=== PATIENT | female | born 1950 | race African-American/Black ===

== ENCOUNTER 2019-10-26 15:31 | Emergency (ER) | payer MEDICARE, SELFPAY ==
--- NOTE | ~2019-10-26 | CT_ITS ---
EXAMINATION: CT abdomen pelvis w con EXAM DATE: 10/26/2019 18:50 INDICATION: Low abdominal pain. Diverticulitis. TECHNIQUE: Spiral CT of the abdomen and pelvis was performed following intravenous injection of 100 m L Omnipaque 350. Axial, coronal and sagittal images were reviewed. The dose-length product (DLP) fo r this examination was 757.18 mGy-cm. The exposure was tailored according to patient size (auto mA e xposure control), and iterative reconstruction (ASIR) was used as additional dose reduction technique . There is no prior study for comparison. FINDINGS: The liver, spleen, adrenal glands and pancreas are unremarkable. Gallbladder is unremarkab le. No biliary obstruction. Portal and splenic veins are patent. Kidneys enhance symmetrically. T here is no hydronephrosis. The uterus is unremarkable. The bladder is unremarkable. There is no retroperitoneal or pelvic lymphadenopathy. The appendix is normal. The stomach and small bowel are unremarkable. There is expected amount of c olonic stool. No free intraperitoneal gas. The heart is normal in size. There are no pericardial or pleural effusions. The lung bases are unremarkable. The bones are unremarkable. IMPRESSION: 1. No acute intra-abdominal findings. Reviewed, dictated and finalized at location A. [employer]ING [employer]
[2019-10-26 16:25] VITALS: BP 145/65; PULSE 80; RESP 19; TEMP 36.8; O2SAT 100
[2019-10-26 16:42] LABS: Basophils Absolute Auto 0.1 K/mm3 (0.0-0.1); Basophils Percent Auto 0.5 % (0.2-1.2); Eosinophils Absolute Auto 0.3 K/mm3 (0-0.3); Eosinophils Percent Auto 2.7 % (0-4.4); Hematocrit 38.6 % (37.0-47.0); Hemoglobin 12.5 g/dL (12.0-15.0); Immature Granulocyte Absolute 0.02 K/mm3 (0.00-0.031); Immature Granulocyte Percent A 0.2 % (0-0.5); Lymphocytes Absolute Auto 1.53 K/mm3 (0.9-3.2); Mean Corpuscular HGB Conc 32.4 g/dl (32-36); Mean Corpuscular Hemoglobin 29.7 pg (26-34); Mean Corpuscular Volume 91.7 fl (80-100); Mean Platelet Volume 10.7 fl (7.4-10.4); Monocytes Absolute Auto 0.6 K/mm3 (0.1-0.6); Monocytes Percent Auto 6.6 % (2.6-8.5); Neutrophils Absolute Auto 7.1 K/mm3 (1.3-6.7); Platelet Count Result 228 k/mm3 (150-375); Red Blood Count 4.21 M/mm3 (4.2-5.4); Red Cell Distribution Width 13.6 % (11.5-14.5); White Blood Count 9.6 K/mm3 (4.5-10.0)
[2019-10-26 16:55] LABS: Alanine Aminotransferase 19 U/L (4-35); Alkaline Phosphatase 95 U/L (38-126); Aspartate Amino Transferase 28 U/L (14-36); Bilirubin,Total 0.3 mg/dL (0.2-1.3); Blood Urea Nitrogen 18 mg/dL (7-17); Calcium 9.4 mg/dL (8.4-10.2); Carbon Dioxide 27 mmol/L (22-30); Chloride 104 mmol/L (98-107); Estimated Glomerular Filt Rate > 60; Glucose 176 mg/dL (65-105); Lipase 54 U/L (23-300); Potassium 3.4 mmol/L (3.4-5.0); Sodium 137 mmol/L (137-145)
[2019-10-26 17:03] LABS: Add Urine Microscopic? YES; Appearance Urine Clear (Clear); Bilirubin Urine Negative (Negative); Blood Urine Negative (Negative); Color Urine Straw (Yellow); Glucose Urine UA Negative (Negative); Ketones Urine Negative (Negative); Leukocyte Esterase Ur Negative LEU/UL (Negative); Mucus Urine Rare /lpf; Nitrate Urine Negative (Negative); Protein Urine Negative (Negative); Specific Grav Ur 1.016 (1.001-1.035); Squamous Epithelial Cell Urine Many /hpf (Few); Urobilinogen Urine Negative mg/dL (<2.0); WBC Urine 0-3 /hpf
--- NOTE | 2019-10-26 17:58 | ED.ABDPAIN ---
HPI - Abdominal Pain General Chief Complaint: Abdominal Pain Stated Complaint: abd pain Time Seen by Provider: 10/26/19 17:57 Source: patient and RN notes reviewed Mode of arrival: other Limitations: no limitations History of Present Illness HPI narrative: Pt is a 69 y/o female who presents to the ED with c/o severe LLQ abdominal pain that began 3 days ago (10/23/19). Pt has a hx of GERD. Pt is able to ambulate. Pt denies dysuria, vaginal bleeding, fever, N/V/D, constipation, and chills. MD elicited complaint: abdominal pain Onset (ago): day(s) (3) Pain Consistency: constant Location: LLQ Severity: severe Associated symptoms: denies other symptoms Related Data Allergies Allergy/AdvReac Type Severity Reaction Status Date / Time metformin AdvReac Intermediate Unknown Verified 03/20/19 08:33 Review of Systems Review of Systems: All systems reviewed & are unremarkable except as noted in HPI and below Constitutional: Constitutional: Denies chills and Denies fever(s) Gastrointestinal: Gastrointestinal: Reports abdominal pain (LLQ), Denies constipation, Denies diarrhea, Denies nausea and Denies vomiting Genitourinary: Genitourinary: Denies abnormal vaginal bleeding, Denies dysuria and Denies vaginal discharge [facility] Past Medical History Medical History (Updated 10/26/19 @ 19:26 by Michael Barillas MD) Anxiety Arthritis GERD (gastroesophageal reflux disease) HTN (hypertension) Hyperlipidemia Type II diabetes mellitus Surgical History Surgical History (Updated 10/26/19 @ 18:26 by Vonda Iverson) Hx of section Social History Social History (Updated 10/26/19 @ 18:27 by Vonda Iverson) Smoking status: Current every day smoker Tobacco type: cigarettes Alcohol intake: current Alcohol use details: Pt drinks occasionally during the holidays. Gender identity (if verbalized by the patient): Female Exam Narrative: Exam Narrative: General appearance: Well-developed, well-nourished Skin: Normal color Head: Normocephalic, nontraumatic Eyes: Clear conjunctiva ENT: Oropharynx normal, ears normal, nose normal Neck: Supple, nontender Chest and respiratory: Airway patent, no respiratory distress, no accessory muscle use Heart: Regular rate/rhythm Abdomen: Soft, diffuse tenderness lower abdomen, no guarding, no rebound, no organomegaly, quiet bowel sounds Vascular: Normal peripheral pulses, normal capillary refill. Musculoskeletal: Normal range of motion, nontender back Neurologic: Alert and oriented ?3, DISPOSAL OPERATOR is normal as tested, no gross motor deficit Course Course Emergency Course: Improving Vital Signs Vital signs: Vital Signs Temperature 36.8 C 10/26/19 16:25 Pulse Rate 80 10/26/19 16:25 Respiratory Rate 19 10/26/19 16:25 Blood Pressure 145/65 H 10/26/19 16:25 Pulse Oximetry 100 10/26/19 16:25 Temperature 36.8 C 10/26/19 16:25 Pulse Rate 76 10/26/19 19:03 Respiratory Rate 14 10/26/19 19:03 Blood Pressure 171/82 H 10/26/19 19:03 Pulse Oximetry 100 10/26/19 19:03 MDM - Abdominal Pain MDM Narrative Medical decision making narrative: Lower abdominal pain, worse with certain movement, 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 Abdominal muscular strain/sprain also is a consideration. Labs, CT abdomen and pelvis with IV contrast, IV fluid, IV morphine and Zofran ordered. Further plan to follow Differential Diagnosis Differential diagnosis: Likely abdominal pain, constipation, diverticulitis, pancreatitis and small bowel obstruction Lab Data Result diagrams: 10/26/19 16:37 10/26/19 16:37 Labs: Lab Results 10/26/19 03/0
[2019-10-26] MEDS: ONDANSETRON INJ 4 MG/2 ML VIAL IV PUSH (18:31)
[2019-10-26] MEDS: SODIUM CHLORIDE 0.9% IV 1,000 ML 999 ML IV CONT (18:31)
[2019-10-26] MEDS: MORPHINE SULFATE 4 MG/ML INJ IV PUSH (18:31)
--- NOTE | 2019-10-26 18:36 | PC.NURSE ---
pt to CT scan via stretcher
[2019-10-26 19:03] VITALS: BP 171/82; PULSE 76; RESP 14; O2SAT 100
[2019-10-26 19:43] VITALS: BP 167/98; PULSE 75; RESP 16; TEMP 36.8; O2SAT 99
== END 2019-10-26 19:46 | disposition home or self-care (01) ==
PROVIDERS: Emergency Medicine; Emergency Provider Emergency Medicine; PCP Family Medicine
DX: R10.32 Left lower quadrant pain (principal); M19.90 Unspecified osteoarthritis, unspecified site; K21.9 Gastro-esophageal reflux disease without esophagitis; I10 Essential (primary) hypertension; E78.5 Hyperlipidemia, unspecified; E11.9 Type 2 diabetes mellitus without complications; F17.210 Nicotine dependence, cigarettes, uncomplicated
CPT/HCPCS: 36415; 74177; 80053; 81001; 83690; 85025; 96361; 96374; 96375; 99284; J2270; J2405; J7030; Q9967

== ENCOUNTER 2020-02-06 00:32 | Outpatient (CLI) | payer MEDICARE, SELFPAY ==
[2020-02-06 18:12] LABS: SARS-CoV-2 RNA PCR Negative
== END 2020-02-06 00:33 | disposition home or self-care (01) ==
LOC: ANHCOVIDDT 00:32
PROVIDERS: PCP Family Medicine; Visit Provider Internal Medicine Gastroenterology
DX: Z20.828 Contact with and (suspected) exposure to other viral communicable diseases (principal); Z01.812 Encounter for preprocedural laboratory examination
CPT/HCPCS: 87635; C9803; U0003

== ENCOUNTER 2020-02-08 02:19 | Day surgery (SDC) | payer MEDICARE, SELFPAY ==
[2020-02-05 14:08] VITALS: BMI 30.2
[2020-02-08 08:16] VITALS: BP 120/95; PULSE 50; RESP 18; TEMP 36.4; O2SAT 98
--- NOTE | 2020-02-08 08:35 | P.HP_ITS ---
History of Present Illness History of Present Illness Consent: Risks, benefits, and alternatives have been discussed and questions answered. Patient agrees to proceed with procedure. Chief complaint: HX of Polyps Narrative: Miriam Sherman is a 69 year old AA female referred for screening colonoscopy. Patient states he had a colonoscopy 7 years ago at [facility] which time several polyps were removed. There is no family history of colon polyps or colon cancer that she is aware of. Patient denies any change in bowel pattern. [facility] Past Medical History Medical History (Updated 10/27/19 @ 00:00 by Donna Collins) Anxiety Arthritis GERD (gastroesophageal reflux disease) HTN (hypertension) Hyperlipidemia Type II diabetes mellitus Surgical History Surgical History (Updated 10/26/19 @ 18:26 by Vonda Iverson) Hx of section Social History Social History (Updated 10/26/19 @ 18:27 by Vonda Iverson) Smoking status: Current every day smoker Tobacco type: cigarettes Alcohol intake: current Gender identity (if verbalized by the patient): Female Meds Home Medications and Allergies Home Medications Medication Instructions Recorded Confirmed Type tramadol 50 mg PO Q4HWA PRN #20 tablet 10/26/19 02/05/20 Rx amlodipine 10 mg PO DAILY 02/05/20 02/05/20 History cetirizine 10 mg PO DAILY 02/05/20 02/05/20 History empagliflozin [Jardiance] 25 mg PO DAILY 02/05/20 02/05/20 History famotidine 20 mg PO DAILY 02/05/20 02/05/20 History insulin glargine [Lantus Solostar 34 unit SUBCUT DAILY 02/05/20 02/05/20 History U-100 Insulin] losartan-hydrochlorothiazide 100 tablet PO DAILY 02/05/20 02/05/20 History naproxen 500 mg PO DAILY 02/05/20 02/05/20 History sertraline 100 mg PO DAILY 02/05/20 02/05/20 History diclofenac potassium 50 mg PO PRN PRN 02/08/20 02/08/20 History Allergies Allergy/AdvReac Type Severity Reaction Status Date / Time metformin AdvReac Intermediate Unknown Verified 03/20/19 08:33 Vital Signs Vital Signs - 24 hr 02/08/20 08:16 Temperature 36.4 C Pulse Rate 50 L Respiratory Rate 18 Blood Pressure 120/95 H Pulse Oximetry 98 Exam Const: Orientation/consciousness: patient oriented x3 Resp: Auscultation: clear to auscultation bilaterally Cardio: Rate: regular rate Rhythm: regular rhythm Heart sounds: no murmurs GI: GI Palp: Yes Soft to palpation, No Tenderness to palpation present (GI), Yes No hepatosplenomegaly present and No Palpable mass present Auscultation: normal bowel sounds Neuro: General: patient oriented x3 and no focal motor deficits Extrem: General: no pedal edema Assessment and Plan Additional Plan Screening colonoscopy secondary history of colonic polyps
[2020-02-08] MEDS: LACTATED RINGERS 1,000 ML 150 ML IV CONT (08:44)
[2020-02-08 08:48] LABS: Glucose Point of Care 62 (65-105)
--- NOTE | 2020-02-08 08:51 | SUR.PREOP ---
DR MAX AWARE OF BS OF 63
--- NOTE | 2020-02-08 08:54 | WPDANESEPPF ---
Anes - Initial Pre Proc Eval Procedure: Operation Date: 02/08/20 09:00 Proposed Procedures p Screening Colonoscopy - Jose De Jesus Schofield MD Date/Time: 02/08/20 08:54 Surgeon: Jose De Jesus Schofield MD Pre Op Diagnosis: HX of Polyps Patient Data Age: 69 Gender: F Height: 5 ft 6 in Weight: 85.1 kg Last Vital Signs Temp 97.6 F 02/08/20 08:16 Pulse 50 L 02/08/20 08:16 Resp 18 02/08/20 08:16 BP 120/95 H 02/08/20 08:16 Pulse Ox 98 02/08/20 08:16 Allergies Allergy/AdvReac Type Severity Reaction Status Date / Time metformin AdvReac Intermediate Unknown Verified 02/08/20 08:48 Home Medications Medication Instructions Recorded Confirmed Type tramadol 50 mg PO Q4HWA PRN #20 tablet 10/26/19 02/08/20 Rx amlodipine 10 mg PO DAILY 02/05/20 02/08/20 History cetirizine 10 mg PO DAILY 02/05/20 02/08/20 History empagliflozin [Jardiance] 25 mg PO DAILY 02/05/20 02/08/20 History famotidine 20 mg PO DAILY 02/05/20 02/08/20 History insulin glargine [Lantus Solostar 34 unit SUBCUT DAILY 02/05/20 02/08/20 History U-100 Insulin] losartan-hydrochlorothiazide 100 tablet PO DAILY 02/05/20 02/08/20 History naproxen 500 mg PO DAILY 02/05/20 02/08/20 History sertraline 100 mg PO DAILY 02/05/20 02/08/20 History diclofenac potassium 50 mg PO PRN PRN 02/08/20 02/08/20 History Laboratory Tests 02/08/20 08:43 POC Capillary Glucose 62 mg/dl L mg/dl (65-105) Patient hx anesthesia problems: none Family hx anesthesia problems: none [facility] Past Medical History Medical History (Updated 10/27/19 @ 00:00 by Donna Collins) Anxiety Arthritis GERD (gastroesophageal reflux disease) HTN (hypertension) Hyperlipidemia Type II diabetes mellitus Surgical History Surgical History (Updated 10/26/19 @ 18:26 by Vonda Iverson) Hx of section Social History Social History (Updated 10/26/19 @ 18:27 by Vonda Iverson) Smoking status: Current every day smoker Tobacco type: cigarettes Alcohol intake: current Gender identity (if verbalized by the patient): Female Anes - Eval Final PreProcedure Day of Procedure 02/08/20 08:54 Patient weight: overweight Heart: regular rate and rhythm Lungs: clear to auscultation Airway: Mallampati scale class II Neurological: alert and oriented Last oral intake: >/= 8 hours ASA classification: III Emergent: no Anesthetic plan: proceed Anesthesia type and monitoring: general GIVS and standard monitoring Informed Consent: The patient's anesthetic plan and its attendant risks and benefits were discussed with the patient/family/POA. Questions were solicited and answers provided to the satisfaction of the patient/family/POA.
[2020-02-08] MEDS: DEXTROSE 50% 25 GM/50 ML SYRINGE IV PUSH (09:00)
[2020-02-08 09:30] VITALS: BP 129/66; PULSE 65; RESP 17; O2SAT 97
[2020-02-08 09:40] VITALS: BP 145/74; PULSE 62; RESP 19; O2SAT 100
[2020-02-08 09:47] LABS: Glucose Point of Care 166 (65-105)
[2020-02-08 09:50] VITALS: BP 137/69; PULSE 58; RESP 16; O2SAT 100
== END 2020-02-08 10:05 | disposition home or self-care (01) ==
PROVIDERS: PCP Family Medicine; Visit Provider Internal Medicine Gastroenterology
PROC: 0DJD8ZZ Inspection of Lower Intestinal Tract, Via Natural or Artificial Opening Endoscopic (ICD-10-PCS; CPT 45378; principal; 2020-02-08 09:00)
DX: Z12.11 Encounter for screening for malignant neoplasm of colon (principal); K64.8 Other hemorrhoids; Z86.010 Personal history of colon polyps; I10 Essential (primary) hypertension; E78.5 Hyperlipidemia, unspecified; E11.9 Type 2 diabetes mellitus without complications; K21.9 Gastro-esophageal reflux disease without esophagitis; F41.9 Anxiety disorder, unspecified; Z79.4 Long term (current) use of insulin; F17.210 Nicotine dependence, cigarettes, uncomplicated
CPT/HCPCS: G0105; J2704; J7120

== ENCOUNTER 2020-03-08 09:01 | Outpatient (CLI) | payer MEDICARE, SELFPAY ==
--- NOTE | ~2020-03-08 | US_ITS ---
EXAMINATION: US soft tissue LE RT DATE: 03/08/2020 09:47 INDICATION: Right knee pain TECHNIQUE: Multiple grayscale and Doppler ultrasound images of the posterior and lateral aspects of t he right knee were obtained. COMPARISON: None FINDINGS: There appears to be small right knee joint effusion in the lateral gutter of the suprapatellar pouch. There is an additional small anechoic fluid collection likely at the posterolateral aspect of the kn ee which could represent either a ganglion cyst or fluid within the popliteal recess. Popliteal arter y and vein appear unremarkable with no aneurysm. No lymphadenopathy or other abnormal mass at the pop liteal fossa. IMPRESSION: 1. Small right knee joint effusion with additional fluid either within a ganglion cyst or at the popl iteal recess at the posterior lateral aspect of the knee. Reviewed, dictated and finalized at location A. IMPRESSION: 1. Small right knee joint effusion with additional fluid either within a gangli on cyst or at the popliteal recess at the posterior lateral aspect of the knee.
== END 2020-03-08 09:02 | disposition home or self-care (01) ==
PROVIDERS: PCP Family Medicine; Visit Provider Family Medicine
DX: M25.561 Pain in right knee (principal); M25.461 Effusion, right knee
CPT/HCPCS: 76882

== ENCOUNTER 2020-12-24 12:25 | Outpatient (CLI) | payer MEDICARE, SELFPAY ==
[2020-12-24 13:53] LABS: Total Triiodothyronine (T3) 1.28 NG/ML (0.97-1.69)
[2020-12-27 14:37] LABS: Thyroid Stimulating Immunoglob <89 % baseline (<140)
[2020-12-28 07:51] LABS: Thyrotropin Receptor Antibody 11.15 IU/L (<=2.00)
[2020-12-29 07:15] LABS: Thyroglobulin 114.6 ng/mL (2.8-40.9); Thyroglobulin Antibodies <1 IU/mL (<=1); Thyroid Peroxidase Antibodies 3 IU/mL (<9)
[2021-01-03 08:28] LABS: Triiodothyronine T3 Free 3.3 pg/mL (2.3-4.2)
== END 2020-12-24 12:26 | disposition home or self-care (01) ==
PROVIDERS: PCP Family Medicine
DX: E03.9 Hypothyroidism, unspecified (principal)
CPT/HCPCS: 36415; 83519; 84432; 84445; 84480; 84481; 86376; 86800

== ENCOUNTER 2021-12-23 14:30 | Outpatient (RCR) | payer MEDICARE, MEDICAID, SELFPAY ==
--- NOTE | 2021-10-03 16:09 | PTOPEVAL ---
Thank you for referring Miriam Sherman to [facility] The patient is scheduled to be seen for therapy? 1-2 x/week for 8 weeks. Please review, sign, date and return this plan of care LAUREL. I agree with and certify that the following plan of care is medically necessary. Referring Physician Date Attending Provider: Marcelino Cardenas, MD Diagnosis neck pain, ligament sprain Onset years Cause no injury Additional Evaluation Detail Pt 15 min late for initial visit. Subjective Information Reports increased neck pain ~2 Query Text:As Reported By Patient/ months ago. Denies a fall or Family injury to contribute to the pain. She is able to perform increased activities when she takes her pain medication. She reports her neck muscle and neck region feel swollen. She reports limitations with sleeping, lifting, ADL's, driving and household task. She has difficulty sleeping due to pain. She reports limitations with turning her neck with activities. She uses heat, ice and medication for her pain. She has an exercises bike and TM at home, but has not used either for ~2 months. Diagnostic Tests X-Rays For This Problem Yes: 2019, normal Pain Assessment Bilateral Neck Reported Pain Level 0 Pain Description Aching,Stabbing,Tightness Pain Frequency Acute,Chronic Lowest Pain Intensity 0 Greatest Pain Intensity 10 Pain Aggravating Factors ADL's,Exercise/Activity, Lifting,Prolonged Position Pain Behaviors Anxious Cervical and Lumbar ROM Cervical ROM Cervical Flexion (0-60) 50:Active in Degrees Cervical Extension (0-70) 50:Active in Degrees Cervical Lateral Flexion Right (0-50) 20:Active in Degrees Cervical Lateral Flexion Left (0-50) 25:Active in Degrees Cervical Rotation Right (0-90) 35:Active in Degrees Cervical Rotation Left (0-90) 20:Active in Degrees Cervical ROM Comments pain and tightness with movement Upper Extremity Range of Motion General Upper Extremity Range of Motion Gross Upper Extremity Range of Motion myah shoulder lateral rotation: Comments side of head
--- NOTE | 2021-11-11 14:22 | PTOPEVAL ---
Physical Therapy Progress Note Thank you for referring Miriam Sherman to [facility].See summary below for Miriam's progress with therapy. She is progressing towards her therapy goals. Additional therapy is required to improve her limitations. The patient is scheduled to be seen for therapy? 1 x/week for 6 weeks. Please review, sign, date and return this plan of care LAUREL. I agree with and certify that the following plan of care is medically necessary. Referring Physician Date Attending Provider: Marcelino Cardenas, Problem Diagnosis neck pain, ligament sprain Onset years Cause no injury Additional Evaluation Detail Reports increased neck pain ~2 months ago. Denies a fall or injury to contribute to the pain. Subjective Information Reports therapy has improved Query Text:As Reported By Patient/ her pain and symptoms. She is Family performing HEP daily. She required increased time with ADL's. She is performing limited cooking without increased pain. 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 She is riding her bike for recreational act. She has been able to walk her dog due to pain. She reports improved feeling of neck muscle and neck region of being swollen. She has difficulty sleeping due to pain. She is limited with prolonged sitting task. She has increased neck pain with turning her head with driving. Pain Assessment Bilateral Neck Reported Pain Level 0 Pain Description Aching,Stabbing,Tightness Pain Frequency Chronic Lowest Pain Intensity 0 Greatest Pain Intensity 7 Cervical and Lumbar ROM Cervical ROM Cervical Flexion (0-60) 60:Active in Degrees Cervical Extension (0-70) 55Active in Degrees Cervical Lateral Flexion Right (0-50) 25:Active in Degrees Cervical Lateral Flexion Left (0-50) 20Active in Degrees Cervical Rotation Right (0-90) 30 active in Degrees Cervical Rotation Left (0-90) 15:Active in Degrees Cervical ROM Comments pain and tightness with movement Cervical and Lumbar Muscle Testing Cervical Muscle Testing Cervical Flexion 3+Fair+ Cervical Extension
--- NOTE | 2021-11-21 13:00 | PCPTNOTE ---
Patient called & cancelled scheduled appointment this date due to no reason provided.
--- NOTE | 2021-11-26 15:40 | PCPTNOTE ---
Patient did not show up for scheduled appointment this date; when calling patient, she stated she called yesterday and stated if she was able to make today's appointment she would call and let us know. Stated to still be sick and not feeling well.
--- NOTE | 2021-12-03 13:27 | PCPTNOTE ---
Called Pt at 13:20 due to not showing up for 13:00 appointment. Spoke with Pt, she stated I'm almost there, I thought my appointment was at 13:30. Pt has been moved to 13:30 on another therapist's schedule.
--- NOTE | 2021-12-10 11:32 | PCPTNOTE ---
Patient called & cancelled scheduled appointment this date no reason given.
--- NOTE | 2021-12-23 16:25 | PTOPEVAL ---
Physical Therapy Discharge Summary Thank you for referring Miriam Sherman to [facility]. She was referred to therapy due to chronic neck pain. She has attended 9 therapy visits from 10/03/21 to 12/23/21 with 4 missed visits. As a result of skilled therapy services she reports improved pain and function, improved sleeping tolerance and improved ability to perform daily task. She demonstrates improved neck motion in all directions, improved neck and shoulder strength, improved soft tissue restrictions. Neck Disability Index:42% impaired at last update and 30% impaired currently. Miriam has achieved 75% of her therapy goals at this time with improved neck motion, improved strength,and improved tolerance with daily task. She demonstrates understanding of her HEP and verbalizes compliance. Will DC skilled therapy services at this time. Please review, sign, date and return this discharge summary LAUREL. I agree with and certify that the following plan of care is medically necessary. Referring Physician Date Attending Provider: Marcelino Cardenas, Diagnosis neck pain, ligament sprain Onset years Cause no injury Additional Evaluation Detail Reports increased neck pain ~2 months ago. Denies a fall or injury to contribute to the pain. Subjective Information Reports therapy has improved Query Text:As Reported By Patient/ her pain and symptoms. She Family reports she will stiffen her neck at times. She feels she holds tension in her neck muscles and does not know how to relax the muscles. She is sleeping better able to sleep 8 hrs, but wakes to use the bathroom vs neck pain. She is able to lift a gallon of milk without difficulty, but not a case of water. She has MCGARRY 1-2x/wk, improved from daily. MCGARRY last only a short time. 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 She has SOB with walking her dog. Pain Assessment Bilateral Neck Reported Pain Level 0 Pain Description Soreness,Tightness Lowest Pain Intensity 0 Greatest Pain Intensity 6 Cervical and Lumbar ROM Cervical ROM Cervical Flexion (0-60) 70 Degrees Cervical Extension (0-70) 65 Degrees Cervical Lateral Flexion Right (0-50) 38 Degrees Cervical Lateral Flexion Left (0-50) 25 Degrees Cervical Rotation Right (0-90) 38 Degrees Cervical Rotation Left (0-90) 36 Degrees Cervical ROM Comments pain an
== END 2021-12-24 11:06 | disposition home or self-care (01) ==
LOC: ANHPT 14:30
PROVIDERS: PCP Family Medicine; Visit Provider Family Medicine
DX: S13.4XXD Sprain of ligaments of cervical spine, subsequent encounter (principal)
CPT/HCPCS: 97014; 97110; 97112; 97140; 97162; 97530; G0283

== ENCOUNTER 2022-02-18 13:25 | Emergency (ER) | payer MEDICARE, MEDICAID, SELFPAY ==
--- NOTE | ~2022-02-18 | XR_ITS ---
EXAMINATION: XR chest 2V DATE: 02/18/2022 14:02 INDICATION: Cough TECHNIQUE: Frontal and lateral views of the chest are obtained COMPARISON: 03/20/2019 FINDINGS: The lungs are free of acute opacities. No pleural effusion or pneumothorax. The cardiomedia stinal silhouette is normal. There is moderate thoracic spondylosis. IMPRESSION: 1. No acute cardiopulmonary abnormality. Reviewed, dictated and finalized at location A.
[2022-02-18 13:30] VITALS: BP 151/77; PULSE 75; RESP 16; TEMP 36.8; O2SAT 99
--- NOTE | 2022-02-18 13:51 | ED.SKABFB ---
HPI - Skin/Abscess/Foreign Bdy General Chief complaint: Skin/Abscess/Foreign Body Stated complaint: rash, left breast pain Time Seen by Provider: 02/18/22 13:43 History of Present Illness HPI narrative: Patient is a 71-year-old female here for evaluation of some discomfort under her left breast and over her back. Patient states the discomfort began about a day ago, is described as a stinging/burning sensation, and is sensitive to touch. She states that she developed some redness on her left upper back yesterday that has also been itchy. Denies fevers, chills, chest pain, shortness of breath. She has not received her shingles vaccine. Related Data Home Medications Medication Instructions Recorded Confirmed amlodipine 10 mg tablet 10 mg PO DAILY 02/05/20 02/08/20 cetirizine 10 mg tablet 10 mg PO DAILY 02/05/20 02/08/20 empagliflozin 25 mg tablet 25 mg PO DAILY 02/05/20 02/08/20 (Jardiance) famotidine 20 mg tablet 20 mg PO DAILY 02/05/20 02/08/20 insulin glargine 100 unit/mL (3 34 unit subcut DAILY 02/05/20 02/08/20 mL) subcutaneous pen (Lantus Solostar U-100 Insulin) losartan 100 100 tablet PO DAILY 02/05/20 02/08/20 mg-hydrochlorothiazide 25 mg tablet naproxen 500 mg tablet 500 mg PO DAILY 02/05/20 02/08/20 sertraline 100 mg tablet 100 mg PO DAILY 02/05/20 02/08/20 diclofenac potassium 50 mg tablet 50 mg PO PRN PRN Pain 02/08/20 02/08/20 Allergies Allergy/AdvReac Type Severity Reaction Status Date / Time metformin AdvReac Intermediate Unknown Verified 02/18/22 13:30 Review of Systems Review of Systems: Gen.: Denies fevers or chills Eyes: Denies eye pain or visual change ENT: Denies congestion Respiratory: Denies shortness of breath or cough CV: Denies chest pain or palpitations GI: Denies abdominal pain nausea, emesis or diarrhea denies burning, urgency, frequency or hematuria Musculoskeletal: Reports back pain and pain under left breast. Neuro: Denies numbness, tingling, weakness or focal weakness Skin: Reports rash. Except as documented, all other systems reviewed and negative [facility] Past Medical History Medical History (Updated 02/19/22 @ 00:00 by Donna Collins) Anxiety Arthritis GERD (gastroesophageal reflux disease) HTN (hypertension) Hyperlipidemia Type II diabetes mellitus Surgical History Surgical History (Updated 10/26/19 @ 18:26 by Vonda Iverson) Hx of section Social History Social History (Updated 10/26/19 @ 18:27 by Vonda Iverson) Smoking status: Current every day smoker Tobacco type: cigarettes Alcohol intake: current Alcohol use details: Pt drinks occasionally during the holidays. Gender identity (if verbalized by the patient): Female Exam Narrative: APPEARANCE: Well appearing, no pain in distress, well-nourished. Head: Normocephalic and atraumatic. EYES: PERRLA/EOMI, conjunctivae clear NOSE: No nasal drainage EARS: External ear normal in appearance THROAT: Oropharynx is clear. Mucous membranes are moist. NECK: Supple. No adenopathy, no masses. RESPIRATORY: Airway patent, respirations nonlabored. Clear to auscultation bilaterally, no rales, rhonchi, wheezing. CARDIOVASCULAR: Regular rate and rhythm without murmurs, rubs, or gallops. ABDOMINAL: Normoactive bowel sounds. Soft, nontender, nondistended. No rebound tenderness or guarding. MUSCULOSKELETAL: Tender to palpation under left breast, no visible rash where she is tender. NEURO: Normal speech. No focal neurologic deficits. SKIN: She has a pale area of patchy erythema over the left inferior scapula; no vesicles or palpable lesions. PSYCHIATRIC: Normal affect/mood. Course Vital Signs Vital signs: Vital Signs Temperature 98.2 F 02/18/22 13:30 Pulse Rate 75 02/18/22 13:30 Respiratory Rate 16 02/18/22 13:30 Blood Pressure 151/77 H 02/18/22 13:30 Pulse Oximetry 99 02/18/22 13:30 Temperature 98.2 F 02/18/22 13:30 Pulse Rate 75 02/18/22 13:30 Respirato
== END 2022-02-18 15:15 | disposition home or self-care (01) ==
PROVIDERS: Emergency Provider Emergency Medicine; PCP Family Medicine
DX: B02.9 Zoster without complications (principal); F41.9 Anxiety disorder, unspecified; M19.90 Unspecified osteoarthritis, unspecified site; K21.9 Gastro-esophageal reflux disease without esophagitis; I10 Essential (primary) hypertension; E78.5 Hyperlipidemia, unspecified; E11.9 Type 2 diabetes mellitus without complications; Z79.4 Long term (current) use of insulin
CPT/HCPCS: 71046; 99283

== ENCOUNTER 2023-05-27 09:00 | Outpatient (CLI) | payer MEDICARE, MEDICAID, SELFPAY ==
--- NOTE | 2023-06-11 18:27 | WPDSLEEPSTUD ---
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 The patient rarely awakens from sleep short of breath. She occasionally awakens at night with heartburn, belching or cough. She occasionally snores and is occasionally loud enough that others complain. She occasionally has trouble sleeping when she has a cold. She denies waking up gasping for air throughout the night. She occasionally has breathing problems at night observed by herself or others. She denies sweating excessively at night. She frequently has heart palpitations or irregular heartbeats during the night. He rarely falls asleep during the day but never while driving. She denies sleep paralysis and cataplexy. She denies having trouble at school or work due to sleepiness. She rarely experiences vivid dreamlike scenes upon awakening or falling asleep. He denies feeling afraid of going to sleep. She occasionally has nightmares but rarely remembers her dreams. She frequently has thoughts racing through her mind. She rarely feels sad or depressed. She frequently has anxiety. She frequently has muscular tension. She rarely notices parts of her body jerk. She frequently kicks during the night. She frequently has crawling and aching feelings in her legs but rarely has leg pain during the night. She denies grinding her teeth during sleep but rarely awakens with morning jaw pain. She is rarely bothered by pain during the day and rarely awakened by pain during the night. She frequently wakes up feeling stiff in the morning. She frequently wakes up with sore or achy muscles. She frequently wakes up with pain in the neck, spine or other joints. She goes to bed at 8:30 p.m. on both weekdays and weekends. It takes her 30 minutes to fall asleep. He wakes up 5 times or more throughout the night for unknown reasons and a can take a while for her to fall back asleep. He does not have a set wake up time. She typically gets 7 hours of sleep per night. She will stay in bed for 1 hour after waking up in the morning. She currently lives with her adult child. She denies consuming any caffeinated beverages within 2 hours of bedtime. She denies engaging in physical exercise before bedtime. She will watch television before falling asleep. She denies taking naps in the afternoon or the evening. She consumes 2-3 caffeinated beverages throughout the day. She is a former smoker. She denies alcohol and recreational drug use. [facility] Past Medical History Medical History Anxiety Arthritis GERD (gastroesophageal reflux disease) HTN (hypertension) Hyperlipidemia Type II diabetes mellitus Surgical History Surgical History Hx of section Social History Social History Smoking status: Current every day smoker Tobacco type: cigarettes Alcohol intake: current Alcohol use details: Pt drinks occasionally during the holidays. Gender identity (if verbalized by the patient): Female Medications Home Medications Medication Instructions Recorded Confirmed Type tramadol 50 mg tablet 50 mg PO Q4HWA PRN pain #20 tabs 10/26/19 02/08/20 Rx amlodipine 10 mg tablet 10 mg PO DAILY 02/05/20 02/08/20 History cetirizine 10 mg tablet 10 mg PO DAILY 02/05/20 02/08/20 History empagliflozin 25 mg tablet 25 mg PO DAILY 02/05/2002/07
[2023-06-11 18:32] VITALS: BMI 34.2
== END 2023-05-28 07:19 | disposition home or self-care (01) ==
LOC: ANHCSM 09:02
PROVIDERS: PCP Family Medicine; Visit Provider Internal Medicine Cardiovascular Disease
DX: G47.30 Sleep apnea, unspecified (principal); G47.61 Periodic limb movement disorder
CPT/HCPCS: 95810